=== PATIENT | female | born 2000 | race Caucasian/White ===

== ENCOUNTER 2024-04-02 21:23 | Inpatient (IN) | payer OTHER ==
[~2024-04-02] VITALS: Ht 157.5 cm; Wt 50.4 kg
[2024-04-02 23:25] LABS: BASOPHILS % (AUTO) 0.6 % (0.0-2.0); EOSINOPHILS % (AUTO) 0.2 % (1.0-6.0); HEMATOCRIT 38.2 % (36-46); HEMOGLOBIN 12.5 g/dL (12.0-16.0); LYMPHOCYTES # (AUTO) 2.9 K/uL (1.0-4.8); LYMPHOCYTES % (AUTO) 32.6 % (22.0-44.0); MEAN CORPUSCULAR HEMOGLOBIN 29.4 pg (26.0-34.0); MEAN CORPUSCULAR HGB CONC 32.7 G/dL (31.0-37.0); MEAN CORPUSCULAR VOLUME 90 fL (80-100); MONOCYTES # (AUTO) 0.6 K/uL (0.1-1.0); MONOCYTES % (AUTO) 6.5 % (2.0-9.0); NEUTROPHILS # (AUTO) 5.3 K/uL (1.8-7.7); NEUTROPHILS % (AUTO) 60.1 % (40.0-70.0); PLATELET COUNT (AUTO) 380 K/uL (150-450); RED BLOOD CELL COUNT(AUTO) 4.26 MIL/uL (4.00-5.20); WHITE BLOOD COUNT (AUTO) 8.9 K/uL (4.5-11.0)
[2024-04-02 23:41] LABS: ANION GAP 11 mmol/L (8-16); CALCIUM, TOTAL 8.9 mg/dL (8.8-10.5); CARBON DIOXIDE 27 mmol/L (22-29); CHLORIDE 104 mmol/L (98-107); CREATININE 0.62 mg/dL (0.60-1.30); GLOMERULAR FILTR. RATE CALC > 60 mL/min (>60); GLUCOSE,RANDOM 94 mg/dL (70-110); POTASSIUM 3.6 mmol/L (3.5-5.1); SODIUM SERUM 142 mmol/L (136-145); UREA NITROGEN, BLOOD 6 mg/dL (7-18)
[2024-04-02 23:42] LABS: ALCOHOL, BLOOD (SERUM) 66 mg/dL (0-10)
[2024-04-03] MEDS ORDERED: HALOPERIDOL 5 MG TABLET PO PRN (00:15)
[2024-04-03] MEDS ORDERED: LORazepam 2 MG TABLET PO PRN (00:15)
[2024-04-03 00:24] LABS: COVID AG,FIA SOURCE NASAL SWAB
[2024-04-03 00:43] LABS: SARS-COV2 (COVID) ANTIGEN,FIA Negative (Negative)
[2024-04-03 05:24] VITALS: O2SAT 99
[2024-04-03 06:03] VITALS: BP 117/68; PULSE 77; RESP 18; TEMP 96.7; O2SAT 99
[2024-04-03 08:00] VITALS: BP 133/66; PULSE 85; RESP 17; TEMP 97; O2SAT 98
[2024-04-03] MEDS: BACITRACIN 28 GM OINTMENT TP SCH (10:25)
[2024-04-03] MEDS ORDERED: MAGNESIUM HYDROXIDE SUSPENSION 30 ML UDCUP PO PRN (16:45)
[2024-04-03] MEDS ORDERED: LOPERAMIDE HCL 2 MG CAPSULE PO PRN (16:45)
[2024-04-03] MEDS ORDERED: MAG HYDROX/ALUMINUM HYD/SIMETH ES 30 ML SUSPENSION UDCUP PO PRN (16:45)
[2024-04-03] MEDS ORDERED: GuaiFENesin/D-METHORPHAN [SUGAR-FREE] 200-20MG/10 ML SYRUP UDCUP PO PRN (16:45)
[2024-04-03] MEDS ORDERED: ALBUTEROL SULFATE HFA 90 MCG/PUFF 8 GM INHALER IH PRN (16:45)
[2024-04-03] MEDS ORDERED: ONDANSETRON 4 MG TABLET PO PRN (16:45)
[2024-04-03] MEDS ORDERED: NICOTINE 14 MG/24 HOUR PATCH TD PRN (16:45)
[2024-04-03] MEDS ORDERED: PETROLATUM,WHITE 28 GM JELLY TP PRN (16:45)
[2024-04-03] MEDS ORDERED: DOCUSATE SODIUM 100 MG CAPSULE PO PRN (16:45)
[2024-04-03] MEDS ORDERED: IBUPROFEN 400 MG TABLET PO PRN (16:45)
[2024-04-03] MEDS ORDERED: CloNIDine HCL 0.1 MG TABLET PO PRN (16:45)
[2024-04-03] MEDS ORDERED: ACETAMINOPHEN 325 MG TABLET PO PRN (16:45)
[2024-04-03] MEDS: ZOLPIDEM TARTRATE 10 MG TABLET PO PRN (20:43)
[2024-04-03 21:09] VITALS: BP 104/64; PULSE 103; RESP 16; TEMP 97.6; O2SAT 98
[2024-04-04 09:11] VITALS: BP 101/70; PULSE 88; RESP 17; TEMP 97.8; O2SAT 98
[2024-04-04 10:16] LABS: THYROID STIMULATING HORMONE 0.86 uIU/mL (0.36-3.74)
[2024-04-04 11:46] LABS: CHOL/HDL RATIO 2.4 (3.9-5.7)
== END 2024-04-04 12:04 | disposition home or self-care (01) | DRG 885 ==
LOC: EDBD 21:23 → EMS 21:23 → B2S 04-03 00:08
PROVIDERS: ADMIT Psychiatry & Neurology Child & Adolescent Psychiatry; ATTEND Psychiatry & Neurology Child & Adolescent Psychiatry
PROC: GZ56ZZZ Individual Psychotherapy, Supportive (ICD-10-PCS; principal; 2024-04-04)
DX: F33.9 Major depressive disorder, recurrent, unspecified (principal); F41.9 Anxiety disorder, unspecified; I10 Essential (primary) hypertension; Z20.822 Contact with and (suspected) exposure to COVID-19; F10.10 Alcohol abuse, uncomplicated; S51.812A Laceration without foreign body of left forearm, initial encounter; X78.8XXA Intentional self-harm by other sharp object, initial encounter; Y93.89 Activity, other specified; Y92.89 Other specified places as the place of occurrence of the external cause; Y99.8 Other external cause status; Z98.84 Bariatric surgery status
CPT/HCPCS: 80048; 80061; 83036; 84443; 84703; 85025; 99285; G0480